=== PATIENT | female | born 1995 | race Caucasian/White ===

== ENCOUNTER 2016-10-09 10:58 | Emergency (ER) | payer OTHER ==
[~2016-10-09] VITALS: Ht 165.1 cm; Wt 78.0 kg
[2016-10-09 11:02] VITALS: TEMP 36.8; Ht 165.1 cm; Wt 78.0 kg
[2016-10-09] MEDS ORDERED: IBUP-103 PO (11:19)
--- NOTE | 2016-10-09 11:51 | DIAGNOSTIC IMAGING REPORT ---
RIGHT HAND MIN 3 VIEWS ROUTINE CLINICAL HISTORY: Right hand pain status post trauma COMPARISON: None. DISCUSSION: There is a longitudinal fracture involving the distal phalanx of the fifth finger with intra-articular extension. There is an oblique fracture involving the middle phalanx of the fifth finger. No dislocations are visualized. IMPRESSION: Acute fractures involving the middle and distal phalanges of the fifth finger. Electronically signed by: Andrew Doe M.D. 10/09/2016 11:50 AM Dictated Date/Time: 10/09/2016 11:47 AM
[2016-10-09] MEDS ORDERED: XYLOCAINE 1%/SOD BICARB 20 ML VIAL INFIL ONE (12:15)
[2016-10-09] MEDS ORDERED: CEFAZOLIN IV 1,000 MG in DEXTROSE 5% 50ML 50 ML IV ONE (12:15)
[2016-10-09] MEDS ORDERED: CEPH500C2 PO (12:39)
[2016-10-09 13:00] VITALS: BP 110/65; PULSE 74; O2SAT 100
--- NOTE | 2016-10-10 17:36 | EMERGENCY ROOM VISIT NOTE ---
ED Visit Note First contact with patient: 11:19 Chief Complaint: Right little finger laceration. History of Present Illness: Ms. Parrish is a 21-year-old white female who ambulates into the ED accompanied by female friend complaining of a right little finger laceration. Patient reports she fell last night approximately 10 hours ago. She does admit that she was drinking alcohol but does not remember the fall; a friend who is with her reports she was with her last night and she did not strike her head or have loss of consciousness. After the fall she only requested to go home and did not want to come to the hospital for further evaluation and care. Prior to arrival at the hospital the patient did not wash the wound. Currently patient is complaining of a throbbing sharp pain in the area of her laceration. She rates her discomfort 8/10. The pain is nonradiating. Her pain worsens with flexion and extension of the PIP and DIP joint and palpation of many areas of the finger extending from the PIP to the DIP joint and distal phalanx. She has not identified any back to the pain. She has not taken medication for pain prior to arrival at the hospital. Associated with her pain she does report there is paresthesias throughout the finger but no loss of sensation. Additionally she denies elbow pain, hand/finger pain, hand weakness. Review of Systems: As noted above in history of present illness. Past Medical History: Status post wisdom teeth extraction. Current Medications: Patient denies. Allergies to Medications: Patient denies. Social History: Patient is University student; she feels safe in her home environment; she denies tobacco use; she admits to alcohol use. Tetanus Immunization Status: Patient reports up-to-date. Physical Examination: Vital Signs: Date Time Temp Pulse Resp B/P Pulse Ox O2 Delivery O2 Flow Rate FiO2 10/09/16 13:00 74 18 110/65 100 Room Air 10/09/16 11:02 36.8 75 16 106/66 94 Room Air GENERAL: 21-year-old female in mild distress due to pain, nontoxic-appearing, afebrile and hemodynamically stable. NEUROLOGICAL: Awake, alert and oriented to person, place and time. Answering questions appropriately and following commands. Normal gait. Good hand eye coordination. No focal motor or sensory deficits. SKIN: Warm, dry and pink. Right Little Finger: Over the finger pad patient has a 1.8 cm full-thickness laceration with protrusion of adipose tissue but no active bleeding. On the posterior aspect patient has abraded off the cuticle from the nail and there is an abrasion over the posterior and lateral aspect of the DIP joint. Also noted was ecchymosis extending from the DIP to the MCP joint. RIGHT HAND: No gross bony deformity. Soft tissue injuries as noted above. There is no tenderness throughout the carpals, metacarpals or MCP joint. There has tenderness throughout the little finger extending from the MCP joint to the distal phalanx with the soft tissues are noted above. Throughout the distal finger the skin was warm and pink and capillary refill is brisk. She was able to distinguish light sensations through all dermal. ED Course: Patient is assessed as noted above. Right Hand X-Rays: Were read by myself and the radiologist and shows a longitudinal fracture involving the distal phalanx with intra-articular extension and an oblique fracture involving the middle phalanx. IV lock was initiated and patient received 1 g of Ancef IV for antibiotic coverage. Wound Repair: Complexity: Basic Verbal consent was obtained after the risks and benefits were explained. The skin was prepped with betadine and a sterile field set. Wound edges of the wound was anesthetized with 1.4 ml buffered 1% lidocaine. The wound was explored for foreign bodies and none found. Copious irrigation was performed using sterile saline. With direct pressure the bleeding subsided. Debridement of some of the patient's adipose from the wound was performed with the iris scissors The wound edges were approximated using 5-0 Ethilon with 3 simple interrupted sutures. Hemostasis and excellent approximation was achieved. On evaluation and cleaning of her other wounds I did note that she abraded most of her cuticle off her fingernail. It did appear the fingernail and come out of the proximal nail fold and was replaced under the fold. It did appear that overall the fingernail was stable. Antibacterial ointment, a sterile dressing and finger splint was applied. No complications and the patient tolerated the procedure well. Patient was educated about tonight's findings and instructed on her treatment plan; she verbalizes understanding and agreement with this plan. Clinical Impression: Laceration of the right little finger. Right little finger distal phalanx fracture. Oblique fracture of the distal phalanx of the right little finger. Right little fingernail injury. Disposition: Patient discharged home in stable condition; prior to departure he was reassessed and subjectively reported she was pain-free. Plan: Comfort measures, wound care, and signs of infection were discussed with the patient. Patient was prescribed Keflex 500 mg 4 times a day for 10 days Patient was encouraged to follow-up with orthopedics for definitive care and treatment Patient was encouraged to return emergency department uncontrolled pain, signs of infection or any new/concerning symptoms.
== END 2016-10-09 13:10 | disposition home or self-care (01) ==
LOC: C.EDB 11:00 → C.EDD 13:10
DX: S62.636A Displaced fracture of distal phalanx of right little finger, initial encounter for closed fracture (principal); S62.626A Displaced fracture of middle phalanx of right little finger, initial encounter for closed fracture; S61.316A Laceration without foreign body of right little finger with damage to nail, initial encounter; W19.XXXA Unspecified fall, initial encounter; Z98.818 Other dental procedure status